=== PATIENT | male | born 1975 | race Two or more races ===

== ENCOUNTER 2016-11-12 01:55 | Emergency (ER) | payer SELFPAY ==
[~2016-11-12] VITALS: Ht 167.6 cm; Wt 68.0 kg
[2016-11-12 02:10] VITALS: BP 130/86
[2016-11-12 04:28] VITALS: BP 130/86
--- NOTE | 2016-11-12 04:51 | Emergency Room Report ---
History of Present Illness General Chief Complaint: Alcohol Intoxication Source: Patient, EMS Present Illness HPI 41YOM BIBEMS for acute public intox Lying on street No signs of trauma No vomiting Denies drug use Has no pains of complaint Allergies: Coded Allergies: UNABLE TO ASSESS (Unverified , 11/12/16) Patient History Past Medical History: none Past Surgical History: none Pertinent Family History: none Social History: Reports: alcohol use Reviewed Nursing Documentation: PMH: Agreed, PSxH: Agreed Review of Systems All Other Systems: negative except mentioned in HPI Physical Exam Vital Signs Date Time Temp Pulse Resp B/P (MAP) Pulse Ox O2 Delivery O2 Flow Rate FiO2 11/12/16 01:52 97.5 94 16 130/86 98 Room Air Sp02 EP Interpretation: reviewed, normal General Appearance: normal inspection, well appearing, no apparent distress, alert, GCS 15, non-toxic, other - +AOB Head: normocephalic, atraumatic Eyes: bilateral eye PERRL, bilateral eye EOMI ENT: normal ENT inspection Neck: normal inspection, full range of motion, supple, no bony tend Respiratory: normal inspection, lungs clear, normal breath sounds, no respiratory distress, no retraction, no wheezing Cardiovascular #1: regular rate, rhythm, no edema Gastrointestinal: normal inspection, normal bowel sounds, non tender, soft, no guarding, no hernia Genitourinary: no CVA tenderness Musculoskeletal: normal inspection, back normal, normal range of motion, Imer' s Sign negative Neurologic: normal inspection, alert, oriented x3, responsive, 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 Afebrile Atraumatic Observed overnight When sober, patient was ambulating with steady gait Asked for and received food While I was in ICU responding to Code Blue, patient reportedly wanted to leave and RN let him go without informing me or requesting additional re-assessment When I came back to ED, patient was gone from ED Last Vital Signs Date Time Temp Pulse Resp B/P (MAP) Pulse Ox O2 Delivery O2 Flow Rate FiO2 11/12/16 04:28 97.5 94 16 130/86 98 Room Air Status: improved Disposition: ELOPED Referrals: NOT CHOSEN IPA/,REFERRING (PCP) TREVOR BLAIR M.D. Nov 12, 2016 04:51
== END 2016-11-12 07:20 | disposition left against medical advice (07) ==
LOC: EDBD 01:55 → EMR 02:07
DX: F10.929 Alcohol use, unspecified with intoxication, unspecified (principal)
CPT/HCPCS: 99284